=== PATIENT | male | born 1990 | race Caucasian/White ===

== ENCOUNTER 2018-06-28 12:39 | Outpatient (CLI) | payer OTHER | END 2018-06-28 13:44 | disposition home or self-care (01) | LOC: LAB 12:39 | DX: J06.9 Acute upper respiratory infection, unspecified (principal); J18.0 Bronchopneumonia, unspecified organism; N39.0 Urinary tract infection, site not specified; J11.1 Influenza due to unidentified influenza virus with other respiratory manifestations ==

== ENCOUNTER → 2019-09-04 | Emergency (ER) | payer OTHER ==
[~2019-09-04] VITALS: Ht 177.8 cm; Wt 71.7 kg
== END | disposition home or self-care (01) ==
LOC: ER 20:27
DX: N20.2 Calculus of kidney with calculus of ureter (principal)

== ENCOUNTER 2022-09-19 14:15 | Emergency (ER) | payer OTHER ==
[~2022-09-19] VITALS: Ht 175.3 cm; Wt 81.6 kg
== END 2022-09-19 20:22 | disposition home or self-care (01) ==
LOC: ER 14:15
DX: K52.9 Noninfective gastroenteritis and colitis, unspecified (principal)